=== PATIENT | male | born 1965 | race Caucasian/White ===

== ENCOUNTER 2019-08-11 19:56 | Emergency (ER) | payer BC ==
[~2019-08-11] VITALS: Ht 185.4 cm; Wt 83.9 kg
[2019-08-11 20:25] VITALS: BP_SYST 111
--- NOTE | 2019-08-11 20:25 | NUR ---
Pt ambulatory to bed 4 for evaluation
[2019-08-11] MEDS ORDERED: FINA5TAB3 PO (20:38)
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
--- NOTE | 2019-08-11 20:50 | NUR ---
ER Dr. Carrasco at bedside examining patient.
[2019-08-11] MEDS ORDERED: HYDROcodone/ACETAMIN 7.5-325 MG TAB PO ONE (21:15)
[2019-08-11] MEDS ORDERED: BACITRACIN 1 GM OINT TP ONE (21:15)
[2019-08-11] MEDS ORDERED: DIPH-TET-PERTUS Vaccine 0.5 ML VIAL (ADACEL) IM ONE (21:30)
[2019-08-11 21:57] VITALS: BP_SYST 111
--- NOTE | 2019-08-11 21:57 | NUR ---
Patient given written and verbal discharge instructions and verbalizes understanding. ER MD Dr. Carrasco discussed with patient the results and treatment provided. Patient in stable condition. ID arm band removed. Rx of norco and ibuprofen given. Patient educated on pain management and to follow up with PMD. Pain Scale 2/10. Pt able to ambulate steadily out of the ER. Opportunity for questions provided and answered. Medication side effect fact sheet provided.
--- NOTE | 2019-08-12 11:57 | NUR ---
[facility] called. RX written by Dr. Carrasco of [facility], they are unable to fill. Verbal auth by Dr. Rodrigues ok to change to tylenol #3.
== END 2019-08-11 21:57 | disposition home or self-care (01) ==
LOC: SED 19:56
DX: S52.122A Displaced fracture of head of left radius, initial encounter for closed fracture (principal); M25.562 Pain in left knee; Z79.899 Other long term (current) drug therapy; Z90.49 Acquired absence of other specified parts of digestive tract; V23.4XXA Motorcycle driver injured in collision with car, pick-up truck or van in traffic accident, initial encounter; Y93.89 Activity, other specified; Y92.89 Other specified places as the place of occurrence of the external cause; Y99.8 Other external cause status
CPT/HCPCS: 90715; 99283

== ENCOUNTER 2024-08-13 20:46 | Emergency (ER) | payer BC ==
[~2024-08-13] VITALS: Ht 182.9 cm; Wt 86.2 kg
[~2024-08-13 20:46] MED LIST: FINA-37 PO
[2024-08-13 21:02] VITALS: BP_SYST 129; PULSE 51; RESP 16; TEMP 97.9; O2SAT 98
[2024-08-13] MEDS ORDERED: PRED20TA PO (21:23)
[2024-08-13 21:32] VITALS: BP_SYST 125; PULSE 59; RESP 15; TEMP 97.9; O2SAT 100
== END 2024-08-13 21:30 | disposition home or self-care (01) ==
LOC: SED 20:46
DX: R22.0 Localized swelling, mass and lump, head (principal); T78.49XA Other allergy, initial encounter; Z90.49 Acquired absence of other specified parts of digestive tract; Z98.890 Other specified postprocedural states; Z79.899 Other long term (current) drug therapy; X58.XXXA Exposure to other specified factors, initial encounter
CPT/HCPCS: 99283